=== PATIENT | female | born 1955 | race Caucasian/White ===

== ENCOUNTER 2022-05-29 10:23 | Outpatient (CLI) | payer MEDICARE | END 2022-05-29 10:24 | disposition home or self-care (01) | LOC: SCSMRI 10:23 | PROVIDERS: ATTEND Orthopaedic Surgery | DX: M24.811 Other specific joint derangements of right shoulder, not elsewhere classified (principal); M19.011 Primary osteoarthritis, right shoulder; M71.811 Other specified bursopathies, right shoulder ==

== ENCOUNTER 2022-06-22 11:39 | Outpatient (CLI) | payer MEDICARE ==
[2022-06-22 15:35] LABS: #Basophils 0.1 10x3/uL (0.0-0.2); #Eosinphils 0.2 10x3/uL (0.0-0.5); #Monocytes 0.4 10x3/uL (0.0-1.1); %Basophils 1.4 % (0.0-2.0); %Lymphocytes 36.1 % (18.0-47.0); %Monocytes 6.5 % (0.0-10.0); %Neutrophils 52.8 % (40.0-75.0); Hemoglobin 13.3 g/dL (12.0-15.5); Mean Corpuscular HGB CONC 32.9 g/dL (32.0-36.0); Mean Corpuscular Hemoglobin 29.9 pg (27.0-33.0); Mean Corpuscular Volume 90.8 fl (81.6-98.3); Mean Platelet Volume 10.8 fl (7.4-10.4); Platelet Count 231 10x3/uL (150-450); Red Blood Cell (RBC) Count 4.45 10x6/uL (3.90-5.03); White Blood Cell (WBC) Count 5.7 10x3/uL (3.5-10.5)
[2022-06-22 15:49] LABS: Anion Gap 12 mmol/L (10-20); BUN (Urea Nitrogen) 17 mg/dL (9.8-20.1); Calc. Creatinine Clearance 0 mL/min (70-130); Calcium 9.3 mg/dL (7.8-10.44); Carbon Dioxide 25 mmol/L (23-31); Chloride 108 mmol/L (98-107); Estimated GFR 85; Glucose 79 mg/dL (80-115); Potassium 4.4 mmol/L (3.5-5.1); Sodium 141 mmol/L (136-145)
== END 2022-06-22 11:40 | disposition home or self-care (01) ==
LOC: LABBT 11:39
PROVIDERS: ATTEND Orthopaedic Surgery
DX: Z01.818 Encounter for other preprocedural examination (principal); M19.011 Primary osteoarthritis, right shoulder
CPT/HCPCS: 71046; 80048; 85025; 93005; 93010

== ENCOUNTER 2022-06-24 06:37 | Day surgery (SDC) | payer MEDICARE ==
[2022-06-22 13:14] VITALS: BMI 26.1
[2022-06-24] MEDS ORDERED: Midazolam HCl 2 mg/2 ml Vial ONE (07:51)
[2022-06-24] MEDS ORDERED: Ropivacaine 0.5% HCl/PF (150 MG/30 ML VIAL) ONE (07:51)
[2022-06-24] MEDS ORDERED: fentaNYL 50 mcg/mL 1 mL Vial ONE (07:51)
[2022-06-24] MEDS ORDERED: Ropivacaine 0.2% HCl/PF 20 ML ONE (07:51)
[2022-06-24] MEDS ORDERED: CEFAZOLIN 2 GM VIAL ONE (07:52)
[2022-06-24] MEDS ORDERED: Sodium Chloride 0.9% 100 ML ONE (07:52)
[2022-06-24] MEDS ORDERED: ePHEDrine Sulfate 50 MG/10 ML VIAL ONE (09:00)
[2022-06-24] MEDS ORDERED: PROPOFOL 200 MG/20 ML VIAL ONE (09:00)
[2022-06-24] MEDS ORDERED: Ondansetron PF 4 MG/2 ML Vial ONE (09:00)
[2022-06-24] MEDS ORDERED: Lidocaine 1% PF 5 ML VIAL ONE (09:00)
[2022-06-24] MEDS ORDERED: Rocuronium Bromide 10 MG/ML (10ML VIAL) ONE (09:00)
[2022-06-24] MEDS ORDERED: NEOSTIGMINE 3 MG/3 ML SYR 3 MG/3 ML SYRINGE ONE (09:00)
[2022-06-24] MEDS ORDERED: GLYCOPYRROLATE/PF 0.2 MG/ML VIAL ONE (09:00)
[2022-06-24] MEDS ORDERED: fentaNYL PF 100 MCG/2 ML SYRINGE ONE (09:11)
[2022-06-24] MEDS ORDERED: Ropivacaine 0.2% 550 ML 550 ML NERVE BLCK SCH (09:15)
[2022-06-24] MEDS ORDERED: traMADol HCl 50 MG TAB PO PRN ×2 (09:15)
[2022-06-24] MEDS ORDERED: HYDROcodone/Acetaminophen 10/325 mg Tablet PO PRN ×2 (09:15)
[2022-06-24] MEDS ORDERED: Ondansetron PF 4 MG/2 ML Vial IVP PRN (09:15)
[2022-06-24] MEDS ORDERED: fentaNYL 50 mcg/mL 1 mL Vial SLOW IVP PRN (09:15)
[2022-06-24] MEDS ORDERED: Zolpidem Tartrate 5 MG TAB PO PRN (09:15)
[2022-06-24] MEDS ORDERED: Promethazine HCl 25 MG/ML VIAL IM PRN (09:15)
[2022-06-24] MEDS ORDERED: Bupivacaine/Epinephrine 0.25% 30 ML VIAL ONE (09:26)
[2022-06-24] MEDS ORDERED: Ketorolac Tromethamine 30 MG/ML VIAL IVP SCH (12:00)
== END 2022-06-24 14:06 | disposition home or self-care (01) ==
LOC: SDC 06:37
PROVIDERS: ATTEND Orthopaedic Surgery
PROC: 0RBJ4ZZ Excision of Right Shoulder Joint, Percutaneous Endoscopic Approach (ICD-10-PCS; principal; 2022-06-24)
PROC: 0PB90ZZ Excision of Right Clavicle, Open Approach (ICD-10-PCS; 2022-06-24)
PROC: 0LS30ZZ Reposition Right Upper Arm Tendon, Open Approach (ICD-10-PCS; 2022-06-24)
PROC: 0RHJ04Z Insertion of Internal Fixation Device into Right Shoulder Joint, Open Approach (ICD-10-PCS; 2022-06-24)
DX: M19.011 Primary osteoarthritis, right shoulder (principal); M75.111 Incomplete rotator cuff tear or rupture of right shoulder, not specified as traumatic; S43.431A Superior glenoid labrum lesion of right shoulder, initial encounter; M25.311 Other instability, right shoulder; M65.811 Other synovitis and tenosynovitis, right shoulder; Z79.82 Long term (current) use of aspirin; Z79.899 Other long term (current) drug therapy; X50.0XXA Overexertion from strenuous movement or load, initial encounter
CPT/HCPCS: 23120; 23430; 29823; A4306; J3010; C1713; J2250; J2405; J2704; J2795; J3490